=== PATIENT | male | born 1995 | race African-American/Black ===

== ENCOUNTER 2017-10-03 15:28 | Emergency (ER) | payer SELFPAY ==
[~2017-10-03] VITALS: Ht 180.3 cm; Wt 80.0 kg
[2017-10-03 15:31] VITALS: BP 158/70; PULSE 62; RESP 14; TEMP 98.5; O2SAT 100
[2017-10-03] MEDS ORDERED: AZITHROMYCIN PWD FOR SUSP 1 GM PACKET PO ONE (16:15)
[2017-10-03] MEDS ORDERED: LIDOCAINE HCL 1% 50 ML VIAL XX ONE (16:15)
[2017-10-03] MEDS ORDERED: cefTRIAXone 250 MG VIAL IM ONE (16:15)
--- NOTE | 2017-10-03 16:19 | PD ---
HPI Chief Complaint: Complaint Time Seen by Provider: 16:08 Travel History International Travel<30 days: No Contact w/Intl Traveler<30days: No Traveled to known affect area: No History of Present Illness HPI This Is a 22-year-old male presents for evaluation of penile discomfort. He reports that for the past 2 days he has had a tingling sensation when he urinates at the urethral meatus. He denies any obvious urethral discharge, significant dysuria, testicular or scrotal pain, nausea or vomiting, abdominal pain. He is sexually active with a new sexual partner over the past 3 weeks. He does tend to use barrier contraception. He has no other complaints at this time. [facility] Social History Alcohol Use: No Tobacco Use: No Allergies-Medications (Allergen,Severity, Reaction): Coded Allergies: No Known Allergies (Unverified , 10/03/17) Review of Systems General / Constitutional: No: Fever, Chills Gastrointestinal: No: Nausea, Vomiting, Abdominal Pain Genitourinary: No: Urgency, Dysuria, Hesitancy, Discharge Skin: No Rash Physical Exam Narrative GENERAL: Well-nourished male in no acute distress SKIN: Warm and dry. HEAD: Atraumatic. Normocephalic. EYES: Pupils equal and round. No scleral icterus. No injection or drainage. ENT: No nasal bleeding or discharge. Mucous membranes pink and moist. NECK: Trachea midline. No JVD. CARDIOVASCULAR: Regular rate and rhythm. No murmur appreciated. RESPIRATORY: No accessory muscle use. Clear to auscultation. Breath sounds equal bilaterally. GASTROINTESTINAL: Abdomen soft, non-tender, nondistended. Hepatic and splenic margins not palpable. examination reveals normal scrotum, distended testicles, normal-appearing he' ll shaft. There is a small amount of clear discharge from the urethral meatus. No rash. MUSCULOSKELETAL: No obvious deformities. No clubbing. No cyanosis. No edema. NEUROLOGICAL: Awake and alert. No obvious cranial nerve deficits. Motor grossly within normal limits. Normal speech. Data Data Last Documented VS Vital Signs Date Time Temp Pulse Resp B/P (MAP) Pulse Ox O2 Delivery O2 Flow Rate FiO2 10/03/17 16:14 60 18 10/03/17 15:31 98.5 158/70 (99) 100 Orders Orders Gc And Chlamydia Pcr (11/30/17 16:13) Azithromycin Powd Pack (Zithromax Powd P (10/03/17 16:15) Ceftriaxone Inj (Rocephin Inj) (10/03/17 16:15) Lidocaine 1% Inj (50 Ml) (Xylocaine 1% I (10/03/17 16:15) Ed Discharge Order (10/03/17 16:13) [facility] Medical Decision Making Medical Screen Exam Complete: Yes Emergency Medical Condition: Yes Medical Record Reviewed: Yes Differential Diagnosis Urethritis-chlamydial versus gonococcal versus chemical versus herpes versus friction irritation versus balanitis Narrative Course 22-year-old male with a new sexual partner presents with 2 days of tingling sensation at the urethral meatus when he urinates. On examination he has a small amount of clear discharge. Certainly suspicious for urethritis. The patient be tested for chlamydia and gonorrhea,. Be treated with Rocephin and azithromycin. He is stable for discharge. Diagnosis Primary Impression: Urethritis Referrals: [facility] Dept. Additional Instructions: Follow-up at the [facility] Department for routine STD testing. Return for any emergent medical conditions. Med/Other Pt SpecificInfo: No Change to Meds Disposition: 01 DISCHARGE HOME Condition: Stable Jaret Jeffries Oct 03, 2017 16:19
[2017-10-03 21:19] LABS: CHLAMYDIA PCR DETECTED (NOT DETECT); NEISSERIA PCR NOT DETECTED (NOT DETECT)
== END 2017-10-03 16:59 | disposition home or self-care (01) ==
LOC: NEPC 15:28
DX: N34.2 Other urethritis (principal)
CPT/HCPCS: 87491; 87591; 96372; 99284; J0696

== ENCOUNTER 2018-02-05 22:35 | Emergency (ER) | payer SELFPAY ==
[~2018-02-05] VITALS: Ht 180.3 cm; Wt 87.3 kg
[2018-02-05 22:47] VITALS: BP 147/94; PULSE 60; RESP 16; TEMP 99.1; O2SAT 100
[2018-02-05 23:14] VITALS: BP 146/82; PULSE 74; RESP 16; O2SAT 100
[2018-02-05] MEDS ORDERED: SODIUM CHLOR 0.9% 1000 ML INJ 1,000 ML IV SCH (23:32)
--- NOTE | 2018-02-05 23:36 | PD ---
HPI Chief Complaint: Flank/Kidney Pain Time Seen by Provider: 23:32 Travel History International Travel<30 days: No Contact w/Intl Traveler<30days: No Traveled to known affect area: No History of Present Illness HPI The patient is a 22-year-old male who complains of right upper quadrant abdominal discomfort for 4 days. He denies any fever, nausea, vomiting, diarrhea, dysuria, frequency or urgency. He denies any previous history of this type of abdominal pain. The pain does not radiate. The pain is a 5/10 in intensity and sharp in character. He denies any history of abdominal surgeries and still has his appendix and gallbladder. [facility] Past Medical History Medical History: Denies Significant Hx Tetanus Vaccination: < 5 Years Influenza Vaccination: No ?: Not Past Surgical History Surgical History: No Previous Surgery Social History Alcohol Use: No Tobacco Use: No Substance Use: No Allergies-Medications (Allergen,Severity, Reaction): Coded Allergies: No Known Allergies (Unverified , 02/06/18) Reported Meds & Prescriptions Reported Meds & Active Scripts Active No Active Prescriptions or Reported Medications Review of Systems Except as stated in HPI: all other systems reviewed are Neg Physical Exam Narrative GENERAL: The patient is alert, oriented 3 in minimal apparent distress with his right upper quadrant abdominal discomfort. His vital signs show blood pressure 146/82 but are otherwise normal. SKIN: Focused skin assessment warm/dry. HEAD: Atraumatic. Normocephalic. EYES: Pupils equal and round. No scleral icterus. No injection or drainage. ENT: No nasal bleeding or discharge. Mucous membranes pink and moist. NECK: Trachea midline. No JVD. CARDIOVASCULAR: Regular rate and rhythm. No murmur appreciated. RESPIRATORY: No accessory muscle use. Clear to auscultation. Breath sounds equal bilaterally. GASTROINTESTINAL: Abdomen soft, with minimal discomfort to direct palpation in the right upper quadrant, nondistended. Hepatic and splenic margins not palpable. No guarding or rebound is present. MUSCULOSKELETAL: No obvious deformities. No clubbing. No cyanosis. No edema. NEUROLOGICAL: Awake and alert. No obvious cranial nerve deficits. Motor grossly within normal limits. Normal speech. PSYCHIATRIC: Appropriate mood and affect; insight and judgment normal. Data Data Last Documented VS Vital Signs Date Time Temp Pulse Resp B/P (MAP) Pulse Ox O2 Delivery O2 Flow Rate FiO2 02/06/18 00:25 16 100 Room Air 02/05/18 23:14 74 02/05/18 22:47 99.1 Orders Orders Complete Blood Count With Diff (02/05/18 23:32) Comprehensive Metabolic Panel (02/05/18 23:32) Lipase (02/05/18 23:32) Ct Abd/Pel W Iv Contrast(Rout) (02/05/18 23:32) Iv Access Insert/Monitor (02/05/18 23:32) Ecg Monitoring (02/05/18 23:32) Oximetry (02/05/18 23:32) Sodium Chlor 0.9% 1000 Ml Inj (Ns 1000 M (02/05/18 23:32) Sodium Chloride 0.9% Flush (Ns Flush) (02/05/18 23:45) Ketorolac Inj (Toradol Inj) (02/05/18 23:45) Iohexol 350 Inj (Omnipaque 350 Inj) (02/06/18 00:13) Urinalysis - C+S If Indicated (02/06/18 00:46) Labs Laboratory Tests Test 02/06/18 00:00 02/06/18 01:06 White Blood Count 5.2 TH/MM3 Red Blood Count 5.97 MIL/MM3 Hemoglobin 15.8 GM/DL Hematocrit 46.6 % Mean Corpuscular Volume 78.1 FL Mean Corpuscular Hemoglobin 26.5 PG Mean Corpuscular Hemoglobin Concent 33.9 % Red Cell Distribution Width 12.2 % Platelet Count 225 TH/MM3 Mean Platelet Volume 9.7 FL Neutrophils (%) (Auto) 41.6 % Lymphocytes (%) (Auto) 41.0 % Monocytes (%) (Auto) 6.5 % Eosinophils (%) (Auto) 9.3 % Basophils (%) (Auto) 1.6 % Neutrophils # (Auto) 2.2 TH/MM3 Lymphocytes # (Auto) 2.1 TH/MM3 Monocytes # (Auto) 0.3 TH/MM3 Eosinophils # (Auto) 0.5 TH/MM3 Basophils # (Auto) 0.1 TH/MM3 CBC Comment DIFF FINAL Differential Comment Blood Urea Nitrogen 10 MG/DL Creatinine 1.10 MG/DL Random Glucose 92 MG/DL Total Protein 7.2 GM/DL Albumin 3.7 GM/DL Calcium Level 8.5 MG/DL Alkaline Phosphatase 111 U/L Aspartate Amino Transf (AST/SGOT) 22 U/L Alanine Aminotransferase (ALT/SGPT) 23 U/L Total Bilirubin 0.3 MG/DL Sodium Level 139 MEQ/L Potassium Level 3.6 MEQ/L Chloride Level 103 MEQ/L Carbon Dioxide Level 29.2 MEQ/L Anion Gap 7 MEQ/L Estimat Glomerular Filtration Rate 101 ML/MIN Lipase 117 U/L Urine Color YELLOW Urine Turbidity CLEAR Urine pH 6.0 Urine Specific [place] 1.015 Urine Protein NEG mg/dL Urine Glucose (UA) NEG mg/dL Urine Ketones NEG mg/dL Urine Occult Blood NEG Urine Nitrite NEG Urine Bilirubin NEG Urine Urobilinogen 0.2 MG/DL Urine Leukocyte Esterase NEG Urine RBC 0-2 /hpf Urine WBC 0-2 /hpf Urine Squamous Epithelial Cells 0-5 /hpf Urine Bacteria NONE /hpf Microscopic Urinalysis Comment CULT NOT INDICATED MDM Medical Decision Making Medical Screen Exam Complete: Yes Emergency Medical Condition: Yes Medical Record Reviewed: Yes Interpretation(s) The CT abdomen/pelvis with IV contrast is normal. The CBC is normal. The urinalysis is normal and cultures not indicated. Differential Diagnosis Cholecystitis, chest wall pain, abdominal pain etiology undetermined, cholelithiasis with colic, colitis Narrative Course The patient has abdominal pain of unknown etiology. The blood work, urine and CAT scan are essentially normal. He has no nausea. He is to follow-up with his primary care physician as soon as possible. Diagnosis Primary Impression: Abdominal pain of unknown etiology Additional Instructions: Follow-up with your primary care physician. Use plain Motrin for pain. Fortunately you have no nausea. Med/Other Pt SpecificInfo: No Change to Meds Scripts No Active Prescriptions or Reported Meds Disposition: 01 DISCHARGE HOME Condition: Stable Anirudh Sandoval MD Feb 05, 2018 23:36
[2018-02-05] MEDS ORDERED: KETOROLAC TROMETHAMINE 30 MG/ML (IVP) VIAL IVP ONE (23:45)
[2018-02-05] MEDS ORDERED: SODIUM CHLORIDE 0.9% FLUSH 10 ML FLUSH IV FLUSH PRN (23:45)
[2018-02-06] MEDS ORDERED: IOHEXOL 350 MG/ML 10 ML VIAL (for RAD DIAG) IVCONTRAST ONE (00:13)
[2018-02-06 00:18] LABS: AUTOMATED NEUTROPHIL # 2.2 TH/MM3 (1.8-7.7); BASOPHIL # 0.1 TH/MM3 (0-0.2); BASOPHIL % 1.6 % (0.0-2.0); EOSINOPHIL # 0.5 TH/MM3 (0-0.4); EOSINOPHIL % 9.3 % (0.0-4.0); HEMATOCRIT 46.6 % (39.0-51.0); HEMOGLOBIN 15.8 GM/DL (13.0-17.0); LYMPHOCYTE # 2.1 TH/MM3 (1.0-4.8); MEAN CELL VOLUME 78.1 FL (80.0-100.0); MEAN CORPUSCULAR HEMOGLOBIN 26.5 PG (27.0-34.0); MEAN CORPUSCULAR HGB CONC 33.9 % (32.0-36.0); MEAN PLATELET VOLUME 9.7 FL (7.0-11.0); MONO % 6.5 % (0.0-8.0); MONOCYTE # 0.3 TH/MM3 (0-0.9); NEUT % 41.6 % (16.0-70.0); PLATELET COUNT 225 TH/MM3 (150-450); RED BLOOD COUNT 5.97 MIL/MM3 (4.50-5.90); RED CELL DISTRIBUTION WIDTH 12.2 % (11.6-17.2); WHITE BLOOD COUNT 5.2 TH/MM3 (4.0-11.0)
[2018-02-06 00:25] VITALS: RESP 16; O2SAT 100
--- NOTE | 2018-02-06 00:26 | RADRPT ---
EXAM DATE/TIME: 02/06/2018 00:04 [place] COMPARISON: No previous studies available for comparison. INDICATIONS : Right sided abdomen pain. IV CONTRAST: 100 cc Omnipaque 350 (iohexol) IV ORAL CONTRAST: No oral contrast ingested. RADIATION DOSE: 10.66 CTDIvol (mGy) MEDICAL HISTORY : None SURGICAL HISTORY : None. ENCOUNTER: Initial ACUITY: 1 day PAIN SCALE: 5/10 LOCATION: Right abdomen TECHNIQUE: Volumetric scanning of the abdomen and pelvis was performed. Using automated exposure control and ad justment of the mA and/or kV according to patient size, radiation dose was kept as low as reasonably achievable to obtain optimal diagnostic quality images. DICOM format image data is available electro nically for review and comparison. FINDINGS: LOWER LUNGS: The visualized lower lungs are clear. LIVER: Homogeneous density without lesion. There is no dilation of the biliary tree. No calcified gallston es. SPLEEN: Normal size without lesion. PANCREAS: Within normal limits. KIDNEYS: Normal in size and shape. There is no mass, stone or hydronephrosis. ADRENAL GLANDS: Within normal limits. VASCULAR: There is no aortic aneurysm. BOWEL/MESENTERY: The stomach, small bowel, and colon demonstrate no acute abnormality. There is no free intraperitone al air or fluid. ABDOMINAL WALL: Within normal limits. RETROPERITONEUM: There is no lymphadenopathy. BLADDER: No wall thickening or mass. REPRODUCTIVE: Within normal limits. INGUINAL: There is no lymphadenopathy or hernia. MUSCULOSKELETAL: Within normal limits for patient age. CONCLUSION: Normal examination. Will Almaraz MD on February 06, 2018 at 0:22 Board Certified Radiologist. This report was verified electronically.
[2018-02-06 00:29] LABS: CHLORIDE 103 MEQ/L (98-107); SODIUM (NA) 139 MEQ/L (136-145)
[2018-02-06 00:33] LABS: ALBUMIN 3.7 GM/DL (3.4-5.0); BICARBONATE 29.2 MEQ/L (21.0-32.0); BLOOD UREA NITROGEN 10 MG/DL (7-18); CALCIUM 8.5 MG/DL (8.5-10.1); GLUCOSE,RANDOM 92 MG/DL (74-106)
[2018-02-06 00:36] LABS: ALT (GPT) 23 U/L (12-78); AST (GOT) 22 U/L (15-37); GLOMERULAR FILTRATION RATE 101 ML/MIN (>89)
[2018-02-06 00:38] LABS: TOTAL BILIRUBIN ADULT 0.3 MG/DL (0.2-1.0); TOTAL PROTEIN 7.2 GM/DL (6.4-8.2)
[2018-02-06 00:39] LABS: ALKALINE PHOSPHATASE 111 U/L (45-117)
[2018-02-06 01:18] LABS: BILIRUBIN, URINE NEG (NEG); BLOOD, URINE NEG (NEG); GLUCOSE,URINE NEG (NEG); KETONE, URINE NEG (NEG); NITRITE,URINE NEG (NEG); URINE COLOR YELLOW (YELLW/STRAW); URINE LEUKOCYTE ESTERASE NEG (NEG)
[2018-02-06 01:22] LABS: RBC, URINE 0-2 /hpf (0-3); SQUAMOUS EPITHELIAL CELL URINE 0-5 /hpf (0-5); WBC, URINE 0-2 /hpf (0-5)
[2018-02-06 01:37] VITALS: BP 153/73; PULSE 68; RESP 16; O2SAT 100
== END 2018-02-06 02:07 | disposition home or self-care (01) ==
LOC: PHED 22:35
DX: R10.11 Right upper quadrant pain (principal)
CPT/HCPCS: 74177; 80053; 81001; 83690; 85025; 96361; 96374; 99285; J1885; J7030; Q9967